=== PATIENT | male | born 1980 | race Hispanic/Latino ===

== ENCOUNTER 2017-07-10 20:23 | Observation (INO) | payer SELFPAY ==
--- NOTE | 2017-07-10 20:37 | C.PDOC ---
History Of Present Illness Patient is a 36 y/o male who presents to the ED with a complaint of left flank pain. Patient reports to have been in [facility] 2 days ago and was seen in a [facility] ED for similar symptoms; patient was admitted and had a stent placed for a 10mm kidney stone. Patient returned to [place] and experienced nausea, vomiting, and intensifying left flank pain tonight, prompting visit. Patient admits to hematuria; denies fever, chills, or testicular pain. No other physical complaints at this time. Time Seen by Provider: 07/10/17 20:28 Chief Complaint (Nursing): Male Genitourinary History Per: Patient History/Exam Limitations: no limitations Onset/Duration Of Symptoms: Days (2 days), Worse Since Current Symptoms Are (Timing): Still Present Associated Symptoms: Nausea, Vomiting, Urinary Symptoms (hematuria). denies: Fever, Chills Recent travel outside of the [place]: No Past Medical History Reviewed: Historical Data, Nursing Documentation, Vital Signs Vital Signs: Last Vital Signs Temp 98.4 F 07/10/17 20:33 Pulse 91 H 07/10/17 20:33 Resp 20 07/10/17 20:33 BP 139/89 07/10/17 20:33 Pulse Ox 97 07/10/17 20:33 - Medical History PMH: No Chronic Diseases Surgical History: No Surg Hx Family History: States: No Known Family Hx - Social History Hx Tobacco Use: Yes (light smoker) Hx Alcohol Use: No Hx Substance Use: No Review Of Systems Constitutional: Negative for: Fever, Chills Gastrointestinal: Positive for: Abdominal Pain (left flank pain) Genitourinary: Positive for: Hematuria. Negative for: Scrotal Pain, Penile Pain Physical Exam - Physical Exam Appears: Well, Non-toxic, No Acute Distress Skin: Normal Color, Warm, Dry Head: Atraumatic, Normacephalic Oral Mucosa: Moist Chest: Symmetrical Cardiovascular: Rhythm Regular, No Murmur Respiratory: Normal Breath Sounds, No Rales, No Rhonchi, No Wheezing Gastrointestinal/Abdominal: Soft, No Tenderness Back: CVA Tenderness (left CVA tenderness) ED Course And Treatment - Laboratory Results Result Diagrams: 07/10/17 20:53 07/10/17 20:53 - CT Scan/US CT Abdomen/pelvis Other Rad Studies (CT/US): Interpreted By Me, Read By Radiologist CT/US Interpretation: EXAM: CT Abdomen and Pelvis Without Intravenous Contrast. EXAM DATE/TIME: Exam ordered 07/10/2017 8:38 PM. CLINICAL HISTORY: 36 years old, male; Pain; Abdominal pain; Generalized; Prior surgery; Surgery date: Post-operative. (0-2 days); Surgery type: Stent; Additional info: Abd pain. TECHNIQUE: Axial computed tomography images of the abdomen and pelvis without intravenous contrast. All CT. scans at this facility use one or more dose reduction techniques, viz.: automated exposure control;. ma/kV adjustment per patient size (including targeted exams where dose is matched to indication; i.e. head); or iterative reconstruction technique. COMPARISON: No relevant prior studies available. FINDINGS: Lung bases: Unremarkable. No mass. No consolidation. ABDOMEN: Liver: Unremarkable. Gallbladder and bile ducts: Unremarkable. No calcified stones. No ductal dilation. Pancreas: Unremarkable. No ductal dilation. Spleen: Unremarkable. No splenomegaly. Adrenals: Unremarkable. No mass. Kidneys and ureters: Left ureteral stent. See below. No obstructing stones. No hydronephrosis. Stomach and bowel: There is a moderate to large amount of stool seen throughout the colon. Appendix: No findings to suggest acute appendicitis. Reproductive: The prostate measures 3.1 x 4.3 by 3.7 cm. Left testicle is positioned within the left. inguinal canal. ABDOMEN and PELVIS: Intraperitoneal space: Unremarkable. No free air. No significant fluid collection. Bones/joints: No acute fracture. No dislocation. Soft tissues: See above. Vasculature: Unremarkable. No abdominal aortic aneurysm. Lymph nodes: Unremarkable. No enlarged lymph nodes. Tubes, lines and devices: There is a left-sided double-J ureteral stent. The proximal end of the stent. is positioned in the ureteropelvic junction. The distal end of the stent is within the bladder beyond the. ureterovesicular junction. IMPRESSION: 1. Left -sided double-J ureteral stent. No hydronephrosis. 2. Moderate to large amount stool in the colon. 3. Left testicle is positioned within the low the left inguinal canal.. Progress Note: CT abdomen/pelvis and urine culture ordered. Pepcid, toradol, zofran, morphine, and IV fluids administered. Medical Decision Making Medical Decision Makin:30- Spoke with Hospitalist who will admit the patient under his service for UTI, abdominal pain. Patient will be admitted to [facility] Disposition Discussed With : Shaheen Hinton Counseled Patient/Family Regarding: Studies Performed, Diagnosis - Disposition Disposition: HOSPITALIZED Disposition Time: 22:28 Condition: FAIR Forms: [facility] (Divehi) - Clinical Impression Clinical Impression: UTI (urinary tract infection), Abdominal pain, Renal colic - Scribe Statement The provider has reviewed the documentation as recorded by the Scribe Danisha Clarke All medical record entries made by the Kyeibe were at my direction and personally dictated by me. I have reviewed the chart and agree that the record accurately reflects my personal performance of the history, physical exam, medical decision making, and the department course for this patient. I have also personally directed, reviewed, and agree with the discharge instructions and disposition.
[2017-07-10] MEDS ORDERED: Sodium Chloride 0.9% 1,000 ML IV ONE (20:38)
[2017-07-10 20:57] LABS: BASO # 0.1 K/uL (0.0-0.2); BASO % 1.4 % (0.0-2.0); EOS # 0.2 K/uL (0.0-0.7); EOS % 4.1 % (0.0-4.0); HEMOGLOBIN 14.5 g/dL (12.0-18.0); LYMPH # 1.1 K/uL (1.0-4.3); LYMPH % 24.4 % (20.0-40.0); MEAN CORPUSCULAR HEMOGLOBIN 29.3 pg (27.0-31.0); MEAN CORPUSCULAR HGB CONC 34.5 g/dL (33.0-37.0); MEAN PLATELET VOLUME 7.6 fL (7.2-11.7); MONO # 0.7 K/uL (0.0-0.8); MONO % 14.7 % (0.0-10.0); NEUT # 2.6 K/uL (1.8-7.0); NEUT % 55.4 % (50.0-75.0); NRBC % 0.1 % (0.0-2.0); RBC 4.96 Mil/uL (4.40-5.90); RED CELL DISTRIBUTION WIDTH 16.9 % (11.5-14.5); WHITE BLOOD COUNT 4.7 K/uL (4.8-10.8)
[2017-07-10 21:04] LABS: SQUAMOUS EPITHIAL 2 /hpf (0-5); URINE BILIRUBIN NEGATIVE (NEGATIVE); URINE BLOOD 3+ (NEGATIVE); URINE CALCIUM OXALATE CRYSTALS OCC /hpf (<OCC); URINE COLOR Red (YELLOW); URINE GLUCOSE (UA) NORMAL (Normal); URINE LEUKOCYTE ESTERASE 2+ Leu/uL (Negative); URINE PROTEIN 2+ mg/dL (NEGATIVE); URINE UROBILINOGEN NORMAL mg/dL (0.2-1.0)
[2017-07-10 21:06] VITALS: RESP 20
[2017-07-10 21:06] LABS: URINE CLARITY Turbid (Clear)
[2017-07-10 21:08] LABS: ALB/GLOB RATIO 1.2 (1.0-2.1); ALBUMIN 4.7 g/dL (3.5-5.0); ALT/SGPT 16 U/L (21-72); AST/SGOT 24 U/L (17-59); BLOOD UREA NITROGEN 12 mg/dL (9-20); CALCIUM 8.5 mg/dl (8.6-10.4); GFR AFRICAN-AMERICAN > 60; GFR NON-AFRICAN AMERICAN > 60; LIPASE 59 U/L (23-300)
[2017-07-10] MEDS ORDERED: Morphine 4 MG/ML VIAL IV STA ×2 (21:16→22:13)
[2017-07-10] MEDS ORDERED: Morphine 4 MG/ML VIAL ONE ×2 (21:21→22:20)
[2017-07-10] MEDS ORDERED: cefTRIAXone IV 1 gm in Dextros 50 ML IVPB ONE (22:34)
--- NOTE | 2017-07-10 23:02 | CP.PCM.HP ---
<GentryBenigno Elva - Last Filed: 07/10/17 23:25> History of Present Illness - History of Present Illness History of Present Illness: CC: "I had a kidney stone" HPI: Mr Stanford is a 36 year old male with a past medical history of kidney stones (uric acid stones), HTN, HLD who presents to [facility] ER complaining of left sided inguinal pain. He states that he was on vacation in [place] when this past , 2 days ago, he developed sudden left inguinal pain. He went to the ER and had a lithotripsy of a 10mm stone and J stent placement in the left ureter. He was discharged with Bactrim and percocet. He came back to [place] 1 day ago without issues. Today afternoon he developed sudden 10/10 left inguinal pain, he took percocet and tylenol without relief and thus decided to come to [facility] ER. Associated symptoms include nausea, vomiting, dysuria and hematuria. He denies chest pain, fever, chills, diarrhea, shortness of breath. When I evaluated him in the ER he was in 10/10 pain even though he had received 8mg Morphine IV. 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 absent: Chills, Fever, Night Sweats - EENT Eyes: absent: Change in Vision - Cardiovascular Cardiovascular: absent: Chest Pain - Respiratory Respiratory: absent: Cough, Hemoptysis - Gastrointestinal Gastrointestinal: absent: Abdominal Pain, Diarrhea - Genitourinary Genitourinary: Difficulty Urinating, Dysuria, Flank Pain, Hematuria, Hx / Renal Surgery, Bladder Distension - Musculoskeletal Musculoskeletal: absent: Arthralgias, Back Pain - Integumentary Integumentary: absent: Bleeding Lesions - Neurological Neurological: absent: Confusion Past Patient History - Past Social History Smoking Status: Light Smoker < 10 Cigarettes Daily - CARDIAC Hx Hypercholesterolemia: Yes - RENAL Hx Kidney Stones: Yes - PSYCHIATRIC Hx Substance Use: No - SURGICAL HISTORY Other/Comment: urethral stent Meds Allergies/Adverse Reactions: Allergies Allergy/AdvReac Type Severity Reaction Status Date / Time NSAIDS (Non-Steroidal Allergy Verified 07/10/17 21:00 Anti-Inflamma Physical Exam - Constitutional Appears: Non-toxic, In Acute Distress - Head Exam Head Exam: ATRAUMATIC, NORMAL INSPECTION - Eye Exam Eye Exam: EOMI Pupil Exam: PERRL - ENT Exam ENT Exam: Mucous Membranes Moist - Neck Exam Neck exam: Positive for: Normal Inspection. Negative for: Lymphadenopathy, Tenderness - Respiratory Exam Respiratory Exam: Clear to Auscultation Bilateral, NORMAL BREATHING PATTERN. absent: Rales, Rhonchi, Wheezes - Cardiovascular Exam Cardiovascular Exam: Tachycardia, REGULAR RHYTHM, +S1, +S2. absent: JVD, Systolic Murmur - GI/Abdominal Exam GI & Abdominal Exam: Normal Bowel Sounds, Soft, Tenderness. absent: Distended, Firm, Guarding, Hernia, Mass - Exam Additional comments: Left inguinal tenderness; Left CVA tenderness - Extremities Exam Extremities exam: Positive for: normal capillary refill, normal inspection, pedal pulses present. Negative for: pedal edema - Back Exam Back exam: CVA tenderness (L) - Neurological Exam Neurological exam: Alert, Oriented x3 - Psychiatric Exam Psychiatric exam: Normal Affect, Normal Mood - Skin Skin Exam: Intact, Normal Color, Warm Results - Vital Signs Recent Vital Signs: Last Vital Signs Temp 98.4 F 07/10/17 20:33 Pulse 91 H 07/10/17 20:33 Resp 20 07/10/17 20:33 BP 139/89 07/10/17 20:33 Pulse Ox 97 07/10/17 20:33 - Labs Result Diagrams: 07/10/17 20:53 07/10/17 20:53 Labs: Laboratory Results - last 24 hr 07/10/17 07/10/17 07/10/17 20:53 20:53 20:53 WBC 4.7 L RBC 4.96 Hgb 14.5 Hct 42.2 MCV 85.0 MCH 29.3 MCHC 34.5 RDW 16.9 H Plt Count 297 MPV 7.6 Neut % (Auto) 55.4 Lymph % (Auto) 24.4 [place] % (Auto) 14.7 H Eos % (Auto) 4.1 H Baso % (Auto) 1.4 Neut # (Auto) 2.6 Lymph # (Auto) 1.1 [place] # (Auto) 0.7 Eos # (Auto) 0.2 Baso # (Auto) 0.1 Sodium 140 Potassium 3.6 Chloride 100 Carbon Dioxide 24 Anion Gap 20 BUN 12 Creatinine 0.9 Est GFR ( Amer) > 60 Est GFR (Non-Af Amer) > 60 Random Glucose 100 Calcium 8.5 L Total Bilirubin 0.8 AST 24 ALT 16 L Alkaline Phosphatase 82 Total Protein 8.7 H Albumin 4.7 Globulin 4.0 H Albumin/Globulin Ratio 1.2 Lipase 59 Urine Color Red Urine Clarity Turbid Urine pH 6.0 Ur Specific [place] 1.019 Urine Protein 2+ H Urine Glucose (UA) Normal Urine Ketones Negative Urine Blood 3+ H Urine Nitrate Negative Urine Bilirubin Negative Urine Urobilinogen Normal Ur Leukocyte Esterase 2+ H Urine WBC (Auto) 71 H Urine RBC (Auto) 1922 H Ur Squamous Epith Cells 2 Calcium Oxalate Crystal Occ H Urine Yeast (Budding) Occ H Assessment & Plan (1) Renal colic Assessment and Plan: Lithotripsy of 10mm left ureter stone and J-stent placement in left ureter 2 days ago Hx of recurrent uric acid kidney stones Urology consult, Dr Luna. Will follow recommendations. NPO for now (for possible urology procedure) * Will order EKG and CXR for possible pre-op Labs/Diagnostics: No leukocytosis, afebrile Lipase NEGATIVE F/U UDS Imaging: Abd/Pelvis CT w/o contrast 07/10/17: pending official report Meds: Dilaudid 1mg IVP Q4H PRN for severe pain Cont home med Flomax 0.4mg PO QD Temazepam 30mg PO HS PRN for insomnia 2/2 to pain Zofran 4mg IVP Q6H PRN for n/v Status: Acute Priority: High (2) UTI (urinary tract infection) Assessment and Plan: Labs/Diagnostics: UA: 2+ Protein, 3+ blood, 2+ leukocyte esterase, 71 WBC, 1922 RBC, calcium oxalate, urine yeast F/U Urine Cx Meds: Ceftriaxone 1g IVPB QD NS @ 125cc/hr Status: Acute Priority: High (3) HTN (hypertension) Assessment and Plan: Cont home med lisinopril 5mg PO QD Status: Acute (4) HLD (hyperlipidemia) Assessment and Plan: Cont home med atorvastatin 40mg QD (substitute in house med crestor 10mg PO QD) Status: Acute (5) Prophylactic measure Assessment and Plan: SCDs AO contraindicated 2/2 hematuria NPO for now (for possible urology procedure) Status: Acute Priority: Low <Shaheen Hinton - Last Filed: 07/11/17 06:23> Results - Vital Signs Recent Vital Signs: Last Vital Signs Temp 97.5 F L 07/10/17 23:55 Pulse 80 07/10/17 23:55 Resp 20 07/10/17 23:55 BP 117/79 07/10/17 23:55 Pulse Ox 97 07/10/17 23:55 - Labs Result Diagrams: 07/10/17 20:53 07/10/17 20:53 Labs: Laboratory Results - last 24 hr 07/10/17 07/10/17 07/10/17 20:53 20:53 20:53 WBC 4.7 L RBC 4.96 Hgb 14.5 Hct 42.2 MCV 85.0 MCH 29.3 MCHC 34.5 RDW 16.9 H Plt Count 297 MPV 7.6 Neut % (Auto) 55.4 Lymph % (Auto) 24.4 [place] % (Auto) 14.7 H Eos % (Auto) 4.1 H Baso % (Auto) 1.4 Neut # (Auto) 2.6 Lymph # (Auto) 1.1 [place] # (Auto) 0.7 Eos # (Auto) 0.2 Baso # (Auto) 0.1 Sodium 140 Potassium 3.6 Chloride 100 Carbon Dioxide 24 Anion Gap 20 BUN 12 Creatinine 0.9 Est GFR ( Amer) > 60 Est GFR (Non-Af Amer) > 60 Random Glucose 100 Calcium 8.5 L Total Bilirubin 0.8 AST 24 ALT 16 L Alkaline Phosphatase 82 Total Protein 8.7 H Albumin 4.7 Globulin 4.0 H Albumin/Globulin Ratio 1.2 Lipase 59 Urine Color Red Urine Clarity Turbid Urine pH 6.0 Ur Specific [place] 1.019 Urine Protein 2+ H Urine Glucose (UA) Normal Urine Ketones Negative Urine Blood 3+ H Urine Nitrate Negative Urine Bilirubin Negative Urine Urobilinogen Normal Ur Leukocyte Esterase 2+ H Urine WBC (Auto) 71 H Urine RBC (Auto) 1922 H Ur Squamous Epith Cells 2 Calcium Oxalate Crystal Occ H Urine Yeast (Budding) Occ H Urine Opiates Screen Urine Methadone Screen Ur Barbiturates Screen Ur Phencyclidine Scrn Ur Amphetamines Screen U Benzodiazepines Scrn U Oth Cocaine Metabols U Cannabinoids Screen 07/10/17 23:59 WBC RBC Hgb Hct MCV MCH MCHC RDW Plt Count MPV Neut % (Auto) Lymph % (Auto) [place] % (Auto) Eos % (Auto) Baso % (Auto) Neut # (Auto) Lymph # (Auto) [place] # (Auto) Eos # (Auto) Baso # (Auto) Sodium Potassium Chloride Carbon Dioxide Anion Gap BUN Creatinine Est GFR ( Amer) Est GFR (Non-Af Amer) Random Glucose Calcium Total Bilirubin AST ALT Alkaline Phosphatase Total Protein Albumin Globulin Albumin/Globulin Ratio Lipase Urine Color Urine Clarity Urine pH Ur Specific [place] Urine Protein Urine Glucose (UA) Urine Ketones Urine Blood Urine Nitrate Urine Bilirubin Urine Urobilinogen Ur Leukocyte Esterase Urine WBC (Auto) Urine RBC (Auto) Ur Squamous Epith Cells Calcium Oxalate Crystal Urine Yeast (Budding) Urine Opiates Screen Positive H Urine Methadone Screen Negative Ur Barbiturates Screen Negative Ur Phencyclidine Scrn Negative Ur Amphetamines Screen Negative U Benzodiazepines Scrn Negative U Oth Cocaine Metabols Negative U Cannabinoids Screen Negative Assessment & Plan - Date & Time Date: 07/11/17 (I have seen and examined the patient. I agree with the findings and plan of care as documented by Dr. Rinaldi. Patient with nephrolithiasis and UTI. Stent recently placed. Rocephin. Consult to urology. Symptomatic treatment. Monitor for acute changes.) Time: 06:22 Attending/Attestation - Attestation I have personally seen and examined this patient.: Yes I have fully participated in the care of the patient.: Yes I have reviewed all pertinent clinical information: Yes
[2017-07-10] MEDS ORDERED: HYDROmorphone 1 mg/ml ISec IVP PRN (23:13)
[2017-07-10] MEDS: Sodium Chloride 0.9% 1,000 ML IV SCH (23:25)
[2017-07-11 00:33] LABS: BARBITURATES, UR NEGATIVE (NEGATIVE); BENZODIAZEPINES, UR NEGATIVE (NEGATIVE); PHENCYCLIDINE, UR NEGATIVE (NEGATIVE)
[2017-07-11 01:12] LABS: OPIATES, UR POSITIVE (NEGATIVE)
[2017-07-11] MEDS: Sodium Chloride 0.9% 1,000 ML IV SCH ×4 (08:02→22:54)
--- NOTE | 2017-07-11 09:14 | CP.PCM.PN ---
<Harsh Abebe - Last Filed: 07/11/17 15:09> Subjective - Date & Time of Evaluation Date of Evaluation: 07/11/17 Time of Evaluation: 10:30 - Subjective Subjective: PGY 2 Medicine Note- Dr. Elizabeth's service Patient seen and examined in no acute distress. Patient admits to left sided diffuse flank pain. He admits to vomiting yesterday and occasional nausea currently. Patient reportedly refused blood work, vitals and imaging studies earlier this morning per nursing team. Patient stated that no one specifically told him the medical plan going ahead. At this time, patient is refusing further lab work or imaging until he is seen by the Urologist. He denies chest pain, palpitations or headaches at this time. Patient used to follow with a Urologist back in [place], who has since retired. Patient is looking for another Urologist who he can establish care with pending discharge. Objective - Vital Signs/Intake and Output Vital Signs (last 24 hours): Temp Pulse Resp BP Pulse Ox 97.5 F L 80 20 117/79 97 07/10/17 23:55 07/10/17 23:55 07/10/17 23:55 07/10/17 23:55 07/10/17 23:55 Intake and Output: 07/11/17 07/11/17 06:59 18:59 Intake Total 875 Balance 875 - Medications Medications: Current Medications Hydromorphone HCl (Dilaudid) 1 mg IVP Q4H PRN PRN Reason: Pain, severe (8-10) Last Admin: 07/11/17 07:42 Dose: 1 mg Sodium Chloride (Sodium Chloride 0.9%) 1,000 mls @ 125 mls/hr IV .Q8H [facility] Last Admin: 07/11/17 08:02 Dose: Not Given Ceftriaxone Sodium 1 gm/ (Sodium Chloride) 100 mls @ 100 mls/hr IVPB Q12H [facility] PRN Reason: Protocol Lisinopril (Zestril) 5 mg PO DAILY [facility] Ondansetron HCl (Zofran Inj) 4 mg IVP Q6 PRN PRN Reason: Nausea/Vomiting Rosuvastatin Calcium (Crestor) 10 mg PO HS [facility] Tamsulosin HCl (Flomax) 0.4 mg PO DAILY [facility] Temazepam (Restoril) 30 mg PO HS PRN PRN Reason: Insomnia - Labs Labs: 07/10/17 20:53 07/10/17 20:53 - Constitutional Appears: Non-toxic, No Acute Distress - Head Exam Head Exam: ATRAUMATIC, NORMAL INSPECTION - Eye Exam Eye Exam: EOMI, Normal appearance, PERRL Pupil Exam: NORMAL ACCOMODATION, PERRL - ENT Exam ENT Exam: Mucous Membranes Moist - Neck Exam Neck Exam: Full ROM - Respiratory Exam Respiratory Exam: NORMAL BREATHING PATTERN. absent: Wheezes - Cardiovascular Exam Cardiovascular Exam: +S1, +S2 - GI/Abdominal Exam GI & Abdominal Exam: Soft, Normal Bowel Sounds. absent: Guarding - Extremities Exam Extremities Exam: Full ROM - Back Exam Back Exam: CVA tenderness (L). absent: CVA tenderness (R) - Neurological Exam Neurological Exam: Awake, Normal Gait, Oriented x3 - Psychiatric Exam Psychiatric exam: Normal Affect, Normal Mood - Skin Skin Exam: Dry, Normal Color, Warm Assessment and Plan - Assessment and Plan (Free Text) Assessment: Assessment & Plan (1) S/P Lithotripsy for Nephrolithiasis Assessment and Plan: Lithotripsy of 10mm left ureter stone and J-stent placement in left ureter 2 days ago Hx of recurrent uric acid kidney stones Urology consult, Dr Luna. Recommendations for outpatient follow up within the week. Abdominal XRAY to check stent placment- however patient refused at this time Advance diet to clears. Monitor No leukocytosis, afebrile Lipase NEGATIVE UDS- Positive for opiates; however patient has been receiving opiate pain medication in the hospital. Abd/Pelvis CT w/o contrast 07/10/17- Left ureteral stent noted. Questionable imaging findings with regards to testicle. Refer to complete imaging report. (A clinical exam was performed by Urologist Dr. Luna and found exam to be within normal parameters) Dilaudid 1mg IVP Q4H PRN for severe pain switched to Morphine 4 mg Q4 PRN for pain control Flomax 0.4mg PO daily Temazepam 30mg PO HS PRN for insomnia Zofran 4mg IVP Q6H PRN for nausea and vomiting Status: Acute Priority: High (2) Complicated UTI (urinary tract infection) Assessment and Plan: Noted recent stent instrumentation which puts patient at increased risk for UTI. Was recently on Bactrim antibiotic therapy previously to this admission. UA: 2+ Protein, 3+ blood, 2+ leukocyte esterase, 71 WBC, 1922 RBC, calcium oxalate, urine yeast F/U Urine Culture Ceftriaxone 1g IVPB discontinued. Will switch to Maxipime 1 g Q12 at this time ( Started 07/11). Vanco 1g Q12 for MRSA coverage (Started 07/11) . On Florastor ( Started 07/11) Monitor LFTs NS @ 125cc/hr Status: Acute Priority: High (3) HTN (hypertension) Assessment and Plan: Cont home med lisinopril 5mg PO daily Normotensive Status: Acute (4) HLD (hyperlipidemia) Assessment and Plan: Cont home med atorvastatin 40mg daily (substitute in house med crestor 10mg PO daily) Status: Acute (5) Prophylactic measure Assessment and Plan: SCDs Anticoagulation contraindicated secondary to hematuria Status: Acute Priority: Low Disp: Likely discharge 07/12 pending AM labs, cultures and clinical presentation. Patient would like to establish care with Dr. Sanders outpatient. Mis, PGY 2 <Nichole Elizabeth V - Last Filed: 07/11/17 17:03> Objective - Vital Signs/Intake and Output Vital Signs (last 24 hours): Temp Pulse Resp BP Pulse Ox 97.8 F 63 20 137/84 97 07/11/17 15:15 07/11/17 15:15 07/11/17 15:15 07/11/17 15:15 07/11/17 15:15 Intake and Output: 07/11/17 07/11/17 06:59 18:59 Intake Total 875 1100 Balance 875 1100 - Medications Medications: Current Medications Sodium Chloride (Sodium Chloride 0.9%) 1,000 mls @ 125 mls/hr IV .Q8H [facility] Last Admin: 07/11/17 14:17 Dose: Not Given Cefepime HCl 1 gm/ Dextrose 50 mls @ 100 mls/hr IVPB Q12H [facility] PRN Reason: Protocol Last Admin: 07/11/17 16:11 Dose: 100 mls/hr Vancomycin/Sodium Chloride (Vancomycin 1 Gm/Ns 200 Ml) 1 gm in 200 mls @ 133.333 mls/hr IVPB Q12H [facility] PRN Reason: Protocol Stop: 07/16/17 15:31 Last Admin: 07/11/17 16:10 Dose: 133.333 mls/hr Lisinopril (Zestril) 5 mg PO DAILY [facility] Last Admin: 07/11/17 10:57 Dose: 5 mg Morphine Sulfate (Morphine) 4 mg IVP Q4 PRN PRN Reason: Pain, moderate (4-7) Last Admin: 07/11/17 16:09 Dose: 4 mg Ondansetron HCl (Zofran Inj) 4 mg IVP Q6 PRN PRN Reason: Nausea/Vomiting Rosuvastatin Calcium (Crestor) 10 mg PO HS [facility] Saccharomyces Boulardii (Florastor) 250 mg PO BID [facility] Tamsulosin HCl (Flomax) 0.4 mg PO DAILY [facility] Last Admin: 07/11/17 10:57 Dose: 0.4 mg Temazepam (Restoril) 30 mg PO HS PRN PRN Reason: Insomnia - Labs Labs: 07/11/17 10:40 07/11/17 10:40 PT 12.9 SECONDS (9.7-12.2) H 07/11/17 10:40 INR 1.1 07/11/17 10:40 APTT 31 SECONDS (21-34) 07/11/17 10:40 Attending/Attestation - Attestation I have personally seen and examined this patient.: Yes I have fully participated in the care of the patient.: Yes I have reviewed all pertinent clinical information, including history, physical exam and plan: Yes Notes (Text): Patient seen, examined and case discussed with day-time resident. Patient with known history of recurrent nephrolithasis status post urethral stent 2 days ago while in [facility], with renal colic. Patient initially this morning very upset, nasty per his AM nurse. Resident went in patient upset because he didn't understand why an EKG or chest xray was necessary and resident to spoke with him in regards to not delay an urologic intervention if needs. Patient reported he understood explanation but he would like to wait until the urologist sees him. Dr. Bear came and evaluated at bedside, I witnessed. Patient has reported normal prostate, undescended testicle over the left, nonpainful, and testicle over the right, nonpainful, circumsized penis. No discharge noted. Urology has explained to him he does not need any procedure, can follow-up with him as outpatient at time of discharge, will need pain control (allergic to aspirin, and NSAID: hives). I have explained to the patient he will need to wait for follow-up urine culture to make sure infection clears. Patient denies chest pain, denies shortness of breathe, denies abdominal pain, reports constipation, which is normal for him, reports back pain. (1) Nephrolithiasis Renal colic Recent J-stent placement Assessment and Plan: * sy of 10mm left ureter stone and J-stent placement in left ureter 2 days ago * 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 Recommendations for outpatient follow up within the week, to remove stent, and followup for 24 hour stone collection given his history of recurrent stones. Abdominal XRAY to check stent placment- however patient refused at this time * Advance diet to clears. Monitor * No leukocytosis, afebrile * Lipase NEGATIVE * UDS- Positive for opiates; however patient has been receiving opiate pain medication in the hospital. * Abd/Pelvis CT w/o contrast 07/10/17- Left ureteral stent noted. Questionable imaging findings with regards to testicle. Refer to complete imaging report. * Dilaudid 1mg IVP Q4H PRN for severe pain switched to Morphine 4 mg Q4 PRN for pain control since dilaudid is not in stock at the hospital * Flomax 0.4mg PO daily * Temazepam 30mg PO HS PRN for insomnia * Zofran 4mg IVP Q6H PRN for nausea and vomiting Status: Acute Priority: High (2) Complicated UTI (urinary tract infection) Assessment and Plan: * Noted recent stent instrumentation which puts patient at increased risk for UTI. * Was recently on Bactrim antibiotic therapy previously to this admission. * UA: 2+ Protein, 3+ blood, 2+ leukocyte esterase, 71 WBC, 1922 RBC, calcium oxalate, urine yeast; F/U Urine Culture * Ceftriaxone 1g IVPB discontinued. Will switch to Maxipime 1 g Q12 at this time (Started 07/11/17). Vanco 1g IV Q12 for MRSA coverage (Started 07/11) . On Florastor 250mg PO BID (Started 07/11) * Monitor LFTs * NS @ 125cc/hr Status: Acute Priority: High (3) HTN (hypertension) Assessment and Plan: * Cont home med lisinopril 5mg PO daily * Normotensive Status: Acute (4) HLD (hyperlipidemia) Assessment and Plan: * Cont home med atorvastatin 40mg daily (substitute in house med crestor 10mg PO daily) Status: Acute (5) Prophylactic measure Assessment and Plan: * SCDs * Anticoagulation contraindicated secondary to hematuria * No NSAIDS no Aspirin given allergy: hives * Patient had refused EKG, chest xray and flat abdominal xray. Status: Acute Priority: Low Disp: Likely discharge 07/12 pending AM labs, cultures and clinical presentation. Discharge last line of resident note in regards to separate patient for follow- up. patient undecided if he is going to follow-up here or in [place].
[2017-07-11] MEDS ORDERED: cefTRIAXone IV 1 gm in Dextros 1 GM in Dextrose 5% In Water 50 ML IVPB SCH (10:00)
[2017-07-11 11:24] LABS: BASO % 1.4 % (0.0-2.0); EOS # 0.2 K/uL (0.0-0.7); EOS % 4.6 % (0.0-4.0); HEMOGLOBIN 13.3 g/dL (12.0-18.0); LYMPH # 0.8 K/uL (1.0-4.3); LYMPH % 24.4 % (20.0-40.0); MEAN CELL VOLUME 85.9 fL (80.0-94.0); MEAN CORPUSCULAR HGB CONC 33.8 g/dL (33.0-37.0); MEAN PLATELET VOLUME 7.8 fL (7.2-11.7); MONO # 0.6 K/uL (0.0-0.8); NEUT # 1.7 K/uL (1.8-7.0); NEUT % 51.6 % (50.0-75.0); NRBC % 0.2 % (0.0-2.0); RBC 4.59 Mil/uL (4.40-5.90); RED CELL DISTRIBUTION WIDTH 16.8 % (11.5-14.5); WHITE BLOOD COUNT 3.4 K/uL (4.8-10.8)
[2017-07-11 11:31] LABS: INR 1.1; PROTHROMBIN TIME 12.9 SECONDS (9.7-12.2)
[2017-07-11 12:13] LABS: ALB/GLOB RATIO 1.1 (1.0-2.1); ALBUMIN 3.9 g/dL (3.5-5.0); ALT/SGPT 24 U/L (21-72); AST/SGOT 41 U/L (17-59); BLOOD UREA NITROGEN 9 mg/dL (9-20); CALCIUM 8.6 mg/dl (8.6-10.4); GFR AFRICAN-AMERICAN > 60; GFR NON-AFRICAN AMERICAN > 60
--- NOTE | 2017-07-11 13:26 | CT ---
PROCEDURE: CT scan abdomen and pelvis dated 07/10/2017 HISTORY: Abdominal pain COMPARISON: No prior TECHNIQUE: Contiguous axial images of the abdomen and pelvis performed without oral or intravenous contrast material. Additional 2 dimensional sagittal and coronal reformats generated. Radiation dose: Total exam DLP = This CT exam was performed using one or more of the following dose reduction techniques: Automated exposure control, adjustment of the mA and/or kV according to patient size, and/or use of iterative reconstruction technique. FINDINGS: LOWER THORAX: Unremarkable. LIVER: Unremarkable. No gross lesion or ductal dilatation. GALLBLADDER AND BILE DUCTS: Unremarkable. PANCREAS: Pancreas appears slightly atrophic and fatty replaced. No obvious pancreatic masses collections or calcifications. SPLEEN: Unremarkable. No splenomegaly. ADRENALS: Unremarkable. KIDNEYS AND URETERS: In situ left ureteral stent. . Kidneys demonstrate relatively symmetric size. No evidence of nephrolithiasis. BLADDER: Urinary bladder incompletely distended which presumably in part accounts for thick-walled appearance. Muscular hypertrophy may contribute. Rule out cystitis. REPRODUCTIVE: Questionable undescended left-sided testis as indicated below within the peritoneal section of this report APPENDIX: Normal-appearing appendix best seen on coronal image number [id number]. No evidence of acute appendicitis BOWEL: Evaluation of the bowel is limited due to the lack of oral contrast material. The stomach is distended with food debris liquid and air. Visualized loops of small bowel exhibit normal contour and caliber. No evidence acute mechanical small bowel obstruction. Moderately large amount of stool seen throughout the colon suggesting fecal retention/ constipation. PERITONEUM: Unremarkable. No fluid collection. No free air. There is a small fat containing umbilical hernia. LYMPH NODES: Unremarkable. No enlarged lymph nodes. VASCULATURE: Unremarkable. No aortic aneurysm. BONES: Mild multilevel degenerative spondylosis of the lower thoracic and lumbar spine. Minor chronic anterior wedge deformities of T11, T12 and to a lesser degree L1 segments felt to be degenerative in origin OTHER FINDINGS: None. IMPRESSION: In situ left ureteral stent. Questionable small amount of fluid or left-sided testicle within the inferior margin of the left inguinal canal -undescended left-sided testis. Correlation with physical exam and/or scrotal ultrasound could be performed for further evaluation. Findings consistent with constipation. Preliminary report provided by overnight radiology service.
[2017-07-11] MEDS ORDERED: Morphine 4 MG/ML VIAL IVP PRN (15:00)
[2017-07-11] MEDS: Vancomycin 1 gm/NS 200 ml 1 GM/200 ML BAG IVPB SCH (16:10)
[2017-07-11] MEDS: Saccharomyces Boulardi 250 mg Cap PO SCH (17:22)
[2017-07-11] MEDS ORDERED: Morphine 4 MG/ML VIAL IVP STA (17:54)
[2017-07-11] MEDS: Morphine 4 MG/ML VIAL IVP PRN (21:10)
[2017-07-12] MEDS: Morphine 4 MG/ML VIAL IVP PRN ×5 (01:06→16:09)
--- NOTE | 2017-07-12 01:16 | CON ---
DATE: 07/11/2017 TIME OF CONSULTATION: Roughly 01:50 p.m. BRIEF HISTORY: The patient is a 36-year-old sexually active white male with one child and a more than 14-year history of kidney stones. The patient's first episode of kidney stones was in 2003 and his last episode of kidney stones prior to this most recent episode was 2011. The patient has always passed his kidney stones. However, during this episode which occurred on 07/08/2017, in [place], the patient was rushed to the emergency room where a CAT scan showed a 10-mm obstructing UPJ stone with severe hydronephrosis. The patient underwent emergency left ureteroscopic laser lithotripsy with complete destruction and removal of the stone fragments and was left with an indwelling left ureteral stent. The patient comes to [facility] emergency room on 07/10/2017 with acute left renal colic and abdominal pelvic CT stone survey showed no evidence of any ureteral stone and just the indwelling left ureteral stent with no hydronephrosis at this time. The patient also had a possibility of a partially left undescended testicle on CT. The patient denies any fever or chills, but did have some nausea and vomiting episodes. The patient was discharged home from [place] on Bactrim DS one b.i.d. FAMILY HISTORY: The patient has a very strong family history of kidney stones, mostly on the male side. His father and grandfather both had kidney stones. PAST SURGICAL HISTORY: Includes tendon repair of the right arm and the left ureteroscopic laser lithotripsy for a 10 mm stone on , 07/08/2017 in [place], ALLERGIES: HE IS STRONGLY ALLERGIC TO NSAIDs AND ASPIRIN, WHICH HE GETS HIVES WHEN HE TAKES THIS CLASS OF MEDICATIONS. PAST MEDICAL AND SURGICAL HISTORY: He has no other medical or surgical history. The patient is currently complaining of some mild left renal colic after being started on Rocephin 1 gm IV piggyback every 24 hours, but this was switched to Maxipime today. PHYSICAL EXAMINATION GENERAL: He is a well-developed, well-nourished slightly obese white male. He is alert. He is oriented. HEENT: Grossly within normal limits. NECK: Supple. Thyroid not palpable. ABDOMEN: Soft and nondistended. BACK: No right CVA tenderness, 1 to 2+ left CVA tenderness. GENITALIA: The patient is circumcised with a normal glandular meatus without any rashes or lesions visualized. Testes are down bilaterally. The left testicle was more high riding, but retracts into the scrotal sac with and it appears to be normal and larger than the right testis. RECTAL: Normal rectal tone without fluctuance or masses. Prostate is average size, smooth, symmetrical, nontender without nodules or indurations with a palpable median sulcus. EXTREMITIES: He has full range of motion of both upper and lower extremities. No leg edema or calf tenderness present. LABORATORY EVALUATION: Today, on 07/11/2017, shows a drop in WBC count from 4.7, which was normal on admission to 3.4 today on IV Rocephin. His hemoglobin and hematocrit are relatively stable today, 07/11/2017. His hemoglobin is 13.3 and hematocrit is 39.4, down from 14.5 and 14.2 on admission, 07/10/2017. Platelet count is 430,000, down from 297,000 on 07/10/2017. His coag profile shows a PT of 12.9, INR of 1.1, and a PTT of 31. His chem profile today, 07/11/2017 shows a sodium of 140, potassium 4.1, chloride 102, CO2 26, BUN and creatinine of 9 and 0.8 respectively, with GFR of greater than 60. Random glucose is 90. Calcium is 8.6, AST was 41, ALT was 24, alk phosphatase was 64, and lipase was 59 on 07/10/2017. His urinalysis on 07/10/2017, the color was red. Clarity was turbid, pH was 6.0, specific gravity 1.019, protein was 2+, glucose is normal, ketones negative, blood 3+. Nitrites, bilirubin, and urobilinogen were all negative or normal. Leukocyte esterase was 2+ with 71 wbc's, 1922 rbc's, with occasional calcium oxalate crystals and some budding yeast. Toxicology was positive for opiates. Otherwise, negative. DIAGNOSTIC IMPRESSION: 1. Status post left ureteroscopic laser lithotripsy for a proximal 10 mm ureteropelvic junction stone, done in [place], [place] on 07/08/2017 with insertion postop of a left ureteral stent. 2. Possible subacute left pyelonephritis. PLAN: Plan is for this patient is to maintain the patient on IV antibiotics till the culture and sensitivities come back from the lab. The patient could eventually be discharged to home on new oral antibiotics depending on the urine culture and sensitivity. The patient also can be placed on Flomax 0.4 mg daily, until the stent is removed with passage of any residual stone sac fragments that are not able to be seen on CAT scan. We will also get a KUB to make sure that the stent was in proper position. The patient will be seen in office followup in about 1 week as per discharge to schedule the patient for cystoscopy with removal of the left ureteral stent. Elmer Luna MD
[2017-07-12] MEDS: Vancomycin 1 gm/NS 200 ml 1 GM/200 ML BAG IVPB SCH ×2 (03:05→14:40)
[2017-07-12] MEDS: Sodium Chloride 0.9% 1,000 ML IV SCH ×3 (03:06→14:40)
[2017-07-12] MEDS: Saccharomyces Boulardi 250 mg Cap PO SCH ×2 (09:23→17:53)
--- NOTE | 2017-07-12 09:26 | CP.PCM.PN ---
<Benigno Rinaldi - Last Filed: 07/12/17 14:11> Subjective - Date & Time of Evaluation Date of Evaluation: 07/12/17 Time of Evaluation: 09:23 - Subjective Subjective: PGY-[address] Tacos Sierra. Patient was given PRN pain meds last night for flank pain. Today he refused his lisinopril, florastor, fluids, and flomax. He says he only wants meds to treat his kidney stone and not other conditions. Today he stated his pain is better compared to admission - he had just received 6mg morphine prior to me seeing him. He denied chest pain, abdominal pain, nausea, vomiting, diarrhea. Objective - Vital Signs/Intake and Output Vital Signs (last 24 hours): Temp Pulse Resp BP Pulse Ox 97.8 F 63 20 137/84 97 07/11/17 15:15 07/11/17 15:15 07/11/17 15:15 07/11/17 15:15 07/11/17 15:15 Intake and Output: 07/12/17 07/12/17 06:59 18:59 Intake Total 2450 Balance 2450 - Medications Medications: Current Medications Sodium Chloride (Sodium Chloride 0.9%) 1,000 mls @ 125 mls/hr IV .Q8H [facility] Last Admin: 07/12/17 08:21 Dose: Not Given Cefepime HCl 1 gm/ Dextrose 50 mls @ 100 mls/hr IVPB Q12H KARIN PRN Reason: Protocol Last Admin: 07/12/17 04:58 Dose: 100 mls/hr Vancomycin/Sodium Chloride (Vancomycin 1 Gm/Ns 200 Ml) 1 gm in 200 mls @ 133.333 mls/hr IVPB Q12H KARIN PRN Reason: Protocol Stop: 07/16/17 15:31 Last Admin: 07/12/17 03:05 Dose: 133.333 mls/hr Lisinopril (Zestril) 5 mg PO DAILY [facility] Last Admin: 07/12/17 09:23 Dose: Not Given Morphine Sulfate (Morphine) 6 mg IVP Q4 PRN PRN Reason: Pain, moderate (4-7) Last Admin: 07/12/17 08:10 Dose: 6 mg Ondansetron HCl (Zofran Inj) 4 mg IVP Q6 PRN PRN Reason: Nausea/Vomiting Rosuvastatin Calcium (Crestor) 10 mg PO HS [facility] Last Admin: 07/11/17 21:08 Dose: 10 mg Saccharomyces Boulardii (Florastor) 250 mg PO BID [facility] Last Admin: 07/12/17 09:23 Dose: Not Given Tamsulosin HCl (Flomax) 0.4 mg PO DAILY [facility] Last Admin: 07/12/17 09:22 Dose: Not Given Temazepam (Restoril) 30 mg PO HS PRN PRN Reason: Insomnia - Labs Labs: 07/11/17 10:40 07/11/17 10:40 PT 12.9 SECONDS (9.7-12.2) H 07/11/17 10:40 INR 1.1 07/11/17 10:40 APTT 31 SECONDS (21-34) 07/11/17 10:40 - Additional Findings Additional findings: - Constitutional Appears: Non-toxic, No Acute Distress - Head Exam Head Exam: ATRAUMATIC, NORMAL INSPECTION - Eye Exam Eye Exam: EOMI, Normal appearance, PERRL Pupil Exam: NORMAL ACCOMODATION, PERRL - ENT Exam ENT Exam: Mucous Membranes Moist - Neck Exam Neck Exam: Full ROM - Respiratory Exam Respiratory Exam: NORMAL BREATHING PATTERN. absent: Wheezes - Cardiovascular Exam Cardiovascular Exam: +S1, +S2 - GI/Abdominal Exam GI & Abdominal Exam: Soft, Normal Bowel Sounds. absent: Guarding - Extremities Exam Extremities Exam: Full ROM - Back Exam Back Exam: CVA tenderness (L). absent: CVA tenderness (R) - Neurological Exam Neurological Exam: Awake, Normal Gait, Oriented x3 - Psychiatric Exam Psychiatric exam: Normal Affect, Normal Mood - Skin Skin Exam: Dry, Normal Color, Warm Assessment and Plan (1) Renal colic Status: Acute (2) UTI (urinary tract infection) Status: Acute (3) HTN (hypertension) Status: Acute (4) HLD (hyperlipidemia) Status: Acute (5) Prophylactic measure Status: Acute - Assessment and Plan (Free Text) Assessment: (1) Nephrolithiasis Renal colic Recent J-stent placement Assessment and Plan: * sy of 10mm left ureter stone and J-stent placement in left ureter 2 days ago * 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 * Recommendations for outpatient follow up within the week, to remove stent, and followup for 24 hour stone collection given his history of recurrent stones , discharge with flomax 0.4mg daily until stent is removed. Abdominal XRAY to check stent placment- however patient refused at this time * Advance diet to clears. Monitor * No leukocytosis, afebrile * Lipase NEGATIVE * UDS- Positive for opiates; however patient has been receiving opiate pain medication in the hospital. * Abd/Pelvis CT w/o contrast 07/10/17- Left ureteral stent noted. Questionable imaging findings with regards to testicle. Refer to complete imaging report. * Dilaudid 1mg IVP Q4H PRN for severe pain switched to Morphine 6 mg Q4 PRN for pain control since dilaudid is not in stock at the hospital * Flomax 0.4mg PO daily * Temazepam 30mg PO HS PRN for insomnia * Zofran 4mg IVP Q6H PRN for nausea and vomiting Status: Acute Priority: High (2) Complicated UTI (urinary tract infection) Assessment and Plan: * Noted recent stent instrumentation which puts patient at increased risk for UTI. * Was recently on Bactrim antibiotic therapy previously to this admission. * UA: 2+ Protein, 3+ blood, 2+ leukocyte esterase, 71 WBC, 1922 RBC, calcium oxalate, urine yeast; F/U Urine Culture * Ceftriaxone 1g IVPB discontinued. Will switch to Maxipime 1 g Q12 at this time (Started 07/11/17). Vanco 1g IV Q12 for MRSA coverage (Started 07/11) . On Florastor 250mg PO BID (Started 07/11) * Monitor LFTs * NS @ 125cc/hr Status: Acute Priority: High (3) HTN (hypertension) Assessment and Plan: * Cont home med lisinopril 5mg PO daily * Normotensive Status: Acute (4) HLD (hyperlipidemia) Assessment and Plan: * Cont home med atorvastatin 40mg daily (substitute in house med crestor 10mg PO daily) Status: Acute (5) Prophylactic measure Assessment and Plan: * SCDs * Anticoagulation contraindicated secondary to hematuria * No NSAIDS no Aspirin given allergy: hives * Patient had refused EKG, chest xray, flat abdominal xray, lisinopril, florastor, fluids, and flomax. Status: Acute Priority: Low <Gareth Sierra - Last Filed: 07/12/17 18:54> Objective - Vital Signs/Intake and Output Vital Signs (last 24 hours): Temp Pulse Resp BP Pulse Ox 98.1 F 58 L 20 107/73 97 07/12/17 16:00 07/12/17 16:00 07/12/17 16:00 07/12/17 16:00 07/12/17 16:00 Intake and Output: 07/12/17 07/12/17 06:59 18:59 Intake Total 2450 1500 Balance 2450 1500 - Labs Labs: 07/11/17 10:40 07/11/17 10:40 PT 12.9 SECONDS (9.7-12.2) H 07/11/17 10:40 INR 1.1 07/11/17 10:40 APTT 31 SECONDS (21-34) 07/11/17 10:40 Attending/Attestation - Attestation I have personally seen and examined this patient.: Yes I have fully participated in the care of the patient.: Yes I have reviewed all pertinent clinical information, including history, physical exam and plan: Yes Notes (Text): 07/12/17 18:52 Patient was seen and examined with the resident. Exam, assessment and plan, and discharge plan were gone over with the resident. Urine Culture showed mixed species Explained to patient that he will need to have repeat Urine performed through his PMD once he has completed treatment with Bactrim. Please see discharge summary for further details. Gareth Sierra D.O.
--- NOTE | 2017-07-12 14:15 | CP.PCM.DIS ---
<GentryBenigno R - Last Filed: 07/12/17 14:11> Provider - Provider Date of Admission: 07/10/17 22:27 Attending physician: Shaheen Hinton MD Primary care physician: PMD: Dr Zacarias Consults: Urology: Dr Luna Time Spent in preparation of Discharge (in minutes): 34 Diagnosis - Discharge Diagnosis (1) Renal colic Status: Resolved Priority: High (2) UTI (urinary tract infection) Status: Acute Priority: High (3) HTN (hypertension) Status: Chronic Priority: Medium (4) HLD (hyperlipidemia) Status: Chronic Priority: Medium (5) Prophylactic measure Status: Acute Priority: Low Hospital Course - Lab Results Lab Results: Micro Results 07/10/17 20:38 Urine Urine Culture - Final 50-100,000 CFU/ML. MULTIPLE SPECIES. SUGGEST REPEAT SPECIMEN. Most Recent Lab Values WBC 3.4 K/uL (4.8-10.8) L 07/11/17 10:40 RBC 4.59 Mil/uL (4.40-5.90) 07/11/17 10:40 Hgb 13.3 g/dL (12.0-18.0) 07/11/17 10:40 Hct 39.4 % (35.0-51.0) 07/11/17 10:40 MCV 85.9 fL (80.0-94.0) 07/11/17 10:40 MCH 29.0 pg (27.0-31.0) 07/11/17 10:40 MCHC 33.8 g/dL (33.0-37.0) 07/11/17 10:40 RDW 16.8 % (11.5-14.5) H 07/11/17 10:40 Plt Count 230 K/uL (130-400) 07/11/17 10:40 MPV 7.8 fL (7.2-11.7) 07/11/17 10:40 Neut % (Auto) 51.6 % (50.0-75.0) 07/11/17 10:40 Lymph % (Auto) 24.4 % (20.0-40.0) 07/11/17 10:40 [place] % (Auto) 18.0 % (0.0-10.0) H 07/11/17 10:40 Eos % (Auto) 4.6 % (0.0-4.0) H 07/11/17 10:40 Baso % (Auto) 1.4 % (0.0-2.0) 07/11/17 10:40 Neut # (Auto) 1.7 K/uL (1.8-7.0) L 07/11/17 10:40 Lymph # (Auto) 0.8 K/uL (1.0-4.3) L 07/11/17 10:40 [place] # (Auto) 0.6 K/uL (0.0-0.8) 07/11/17 10:40 Eos # (Auto) 0.2 K/uL (0.0-0.7) 07/11/17 10:40 Baso # (Auto) 0.0 K/uL (0.0-0.2) 07/11/17 10:40 PT 12.9 SECONDS (9.7-12.2) H 07/11/17 10:40 INR 1.1 07/11/17 10:40 APTT 31 SECONDS (21-34) 07/11/17 10:40 Sodium 140 mmol/L (132-148) 07/11/17 10:40 Potassium 4.1 mmol/L (3.6-5.2) 07/11/17 10:40 Chloride 102 mmol/L (98-107) 07/11/17 10:40 Carbon Dioxide 26 mmol/L (22-30) 07/11/17 10:40 Anion Gap 16 (10-20) 07/11/17 10:40 BUN 9 mg/dL (9-20) 07/11/17 10:40 Creatinine 0.8 mg/dL (0.8-1.5) 07/11/17 10:40 Est GFR ( Amer) > 60 07/11/17 10:40 Est GFR (Non-Af Amer) > 60 07/11/17 10:40 Random Glucose 90 mg/dL (75-110) 07/11/17 10:40 Calcium 8.6 mg/dl (8.6-10.4) 07/11/17 10:40 Total Bilirubin 1.0 mg/dL (0.2-1.3) 07/11/17 10:40 AST 41 U/L (17-59) 07/11/17 10:40 ALT 24 U/L (21-72) 07/11/17 10:40 Alkaline Phosphatase 64 U/L (38-126) 07/11/17 10:40 Total Protein 7.4 g/dL (6.3-8.3) 07/11/17 10:40 Albumin 3.9 g/dL (3.5-5.0) 07/11/17 10:40 Globulin 3.5 gm/dL (2.2-3.9) 07/11/17 10:40 Albumin/Globulin Ratio 1.1 (1.0-2.1) 07/11/17 10:40 Lipase 59 U/L (23-300) 07/10/17 20:53 Urine Color Red (YELLOW) 07/10/17 20:53 Urine Clarity Turbid (Clear) 07/10/17 20:53 Urine pH 6.0 (5.0-8.0) 07/10/17 20:53 Ur Specific Hansen 1.019 (1.003-1.030) 07/10/17 20:53 Urine Protein 2+ mg/dL (NEGATIVE) H 07/10/17 20:53 Urine Glucose (UA) Normal mg/dL (Normal) 07/10/17 20:53 Urine Ketones Negative mg/dL (NEGATIVE) 07/10/17 20:53 Urine Blood 3+ (NEGATIVE) H 07/10/17 20:53 Urine Nitrate Negative (NEGATIVE) 07/10/17 20:53 Urine Bilirubin Negative (NEGATIVE) 07/10/17 20:53 Urine Urobilinogen Normal mg/dL (0.2-1.0) 07/10/17 20:53 Ur Leukocyte Esterase 2+ Kari/uL (Negative) H 07/10/17 20:53 Urine WBC (Auto) 71 /hpf (0-5) H 07/10/17 20:53 Urine RBC (Auto) 1922 /hpf (0-3) H 07/10/17 20:53 Ur Squamous Epith Cells 2 /hpf (0-5) 07/10/17 20:53 Calcium Oxalate Crystal Occ /hpf (<OCC) H 07/10/17 20:53 Urine Yeast (Budding) Occ /hpf (NEGATIVE) H 07/10/17 20:53 Urine Opiates Screen Positive (NEGATIVE) H 07/10/17 23:59 Urine Methadone Screen Negative (NEGATIVE) 07/10/17 23:59 Ur Barbiturates Screen Negative (NEGATIVE) 07/10/17 23:59 Ur Phencyclidine Scrn Negative (NEGATIVE) 07/10/17 23:59 Ur Amphetamines Screen Negative (NEGATIVE) 07/10/17 23:59 U Benzodiazepines Scrn Negative (NEGATIVE) 07/10/17 23:59 U Oth Cocaine Metabols Negative (NEGATIVE) 07/10/17 23:59 U Cannabinoids Screen Negative (NEGATIVE) 07/10/17 23:59 - Hospital Course Hospital Course: CC: "I had a kidney stone" HPI: Mr Stanford is a 36 year old male with a past medical history of kidney stones (uric acid stones), HTN, HLD who presents to [facility] ER complaining of left sided inguinal pain. He states that he was on vacation in [place] when this past , 2 days ago, he developed sudden left inguinal pain. He went to the ER and had a lithotripsy of a 10mm stone and J stent placement in the left ureter. He was discharged with Bactrim and percocet. He came back to [place] 1 day ago without issues. Today afternoon he developed sudden 10/10 left inguinal pain, he took percocet and tylenol without relief and thus decided to come to [facility] ER. Associated symptoms include nausea, vomiting, dysuria and hematuria. He denies chest pain, fever, chills, diarrhea, shortness of breath. When I evaluated him in the ER he was in 10/10 pain even though he had received 8mg Morphine IV. 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 Patient had lithotripsy and J stent placed in [place] [address] of abdomen and pelvis showed "in situ left ureteral stent and questionable small amount of fluid or left-sided testicle within inferior margin of left inguinal canal- undescended left-sided testis." Dr. Luna from from urology was consulted. Patient was treated with cefepime 1 gm IV Q12hr, vancomycin 1gm IV Q12hr, Flomax .4mg PO daily, Zofran 4mg IV Q6 PRN, morphine 6mg IVP Q4 PRN, as well as lisinopril 5mg PO daily, Crestor 10mg PO HS for chronic conditions. Upon discharge after a three day admission, patient's urine cultures had grown multiple species suggesting repeat specimen after finishing course of outpatient antibiotics. Patient's pain had improved immensely. Patient was discharged with bactrim 160/ 800mg double strength BID for 7 days, Flomax .4mg with breakfast, Florastor 250 mg PO BID for 37 days, Percocet 5/325 Q8hrs PRN for intractable pain for 5 days , Zofran 4 mg Q8hrs PRN, as well as Atrovastatin 40 mg, once daily, lisinopril 5mg once day. Patient was advised to hydrate aggressively with at least 3 liters of water daily and advance diet as tolerated. Patient was advised to follow up with Dr. Luna tomorrow for management of Left ureter stent. Patient was advised to follow up with PMD Dr. Zacarias upon completion of antibiotic course in 1 week for repeat urine culture. 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 * Recommendations for outpatient follow up within the week, to remove stent, and followup for 24 hour stone collection given his history of recurrent stones , discharge with flomax 0.4mg daily until stent is removed. Abdominal XRAY to check stent placment- however patient refused at this time * Advance diet to clears. Monitor * No leukocytosis, afebrile * Lipase NEGATIVE * UDS- Positive for opiates; however patient has been receiving opiate pain medication in the hospital. * Abd/Pelvis CT w/o contrast 07/10/17- Left ureteral stent noted. Questionable imaging findings with regards to testicle. Refer to complete imaging report. * Dilaudid 1mg IVP Q4H PRN for severe pain switched to Morphine 6 mg Q4 PRN for pain control since dilaudid is not in stock at the hospital * Flomax 0.4mg PO daily * Temazepam 30mg PO HS PRN for insomnia * Zofran 4mg IVP Q6H PRN for nausea and vomiting Status: Acute Priority: High (2) Complicated UTI (urinary tract infection) Assessment and Plan: * Noted recent stent instrumentation which puts patient at increased risk for UTI. * Was recently on Bactrim antibiotic therapy previously to this admission. * UA: 2+ Protein, 3+ blood, 2+ leukocyte esterase, 71 WBC, 1922 RBC, calcium oxalate, urine yeast; F/U Urine Culture * Ceftriaxone 1g IVPB discontinued. Will switch to Maxipime 1 g Q12 at this time (Started 07/11/17). Vanco 1g IV Q12 for MRSA coverage (Started 07/11) . On Florastor 250mg PO BID (Started 07/11) * Monitor LFTs * NS @ 125cc/hr Status: Acute Priority: High (3) HTN (hypertension) Assessment and Plan: * Cont home med lisinopril 5mg PO daily * Normotensive Status: Acute (4) HLD (hyperlipidemia) Assessment and Plan: * Cont home med atorvastatin 40mg daily (substitute in house med crestor 10mg PO daily) Status: Acute (5) Prophylactic measure Assessment and Plan: * SCDs * Anticoagulation contraindicated secondary to hematuria * No NSAIDS no Aspirin given allergy: hives * Patient had refused EKG, chest xray, flat abdominal xray, lisinopril, florastor, fluids, and flomax. Status: Acute Priority: Low Discharge Exam - Head Exam Head Exam: ATRAUMATIC, NORMAL INSPECTION - Additional Findings Additional findings: - Constitutional Appears: Non-toxic, No Acute Distress - Head Exam Head Exam: ATRAUMATIC, NORMAL INSPECTION - Eye Exam Eye Exam: EOMI, Normal appearance, PERRL Pupil Exam: NORMAL ACCOMODATION, PERRL - ENT Exam ENT Exam: Mucous Membranes Moist - Neck Exam Neck Exam: Full ROM - Respiratory Exam Respiratory Exam: NORMAL BREATHING PATTERN. absent: Wheezes - Cardiovascular Exam Cardiovascular Exam: +S1, +S2 - GI/Abdominal Exam GI & Abdominal Exam: Soft, Normal Bowel Sounds. absent: Guarding - Extremities Exam Extremities Exam: Full ROM - Back Exam Back Exam: CVA tenderness (L). absent: CVA tenderness (R) - Neurological Exam Neurological Exam: Awake, Normal Gait, Oriented x3 - Psychiatric Exam Psychiatric exam: Normal Affect, Normal Mood - Skin Skin Exam: Dry, Normal Color, Warm Discharge Plan - Discharge Medications Prescriptions: Atorvastatin [Lipitor] 40 mg PO HS 30 Days #30 tab Lisinopril [Zestril] 5 mg PO DAILY #30 tab Ondansetron ODT [Zofran ODT] 4 mg PO Q8H PRN #30 odt PRN Reason: Nausea/Vomiting oxyCODONE/Acetaminophen [Percocet 5/325 mg Tab] 1 tab PO Q8H PRN #15 tab PRN Reason: Pain, Severe (8-10) Saccharomyces Boulardi [Florastor] 250 mg PO BID 30 Days #60 cap Sulfamethoxazole/Trimethoprim [Bactrim DS 800 mg-160 mg] 1 tab PO Q12H 7 Days # 14 tab Tamsulosin [Flomax] 0.4 mg PO DAILY 30 Days #30 cap - Follow Up Plan Condition: FAIR Disposition: HOME/ ROUTINE Instructions: Saccharomyces boulardii, High Blood Pressure (DC), Urinary Tract Infection, Adult (DC), Renal Colic (DC), Full Liquid Diet, High Cholesterol (DC) , Atorvastatin, Sulfamethoxazole and Trimethoprim, Lisinopril, Ondansetron, Oxycodone and Acetaminophen, Tamsulosin Additional Instructions: Patient is medically stable for discharge. Patient will need to follow-up with Urologist Dr Luna regarding the stent in the left ureter. Dr Luna instructions are to follow-up with him in 1 week (patient already has Dr Luna business card), to take the oral antibiotics and to continue the Flomax. When Dr Luna see's the patient in his office, he will then schedule a cystoscopy with removal of the left ureteral stent. Patient was electronically prescribed the following medications which he should take as instructed. These were [facility] sent over to [facility] 1. Zofran 4mg 1 tablet only as needed for nausea every 8 hours 2. Florastor 250mg 1 tablet 2 hours prior to taking the antibiotic - continue for 1 month (this will prevent diarrhea associated with antiobiotics) 3. Bactrim DS 800-160mg 1 tablet every 12 hours for 7 days 4. Flomax 0.4mg 1 tablet in the morning The following script was given to the patient (as it could not be electronically sent over) 1. Percocet 5/325mg 1 tab as needed for pain every 8 hours The following home medications were also electronically prescribed 1. Lipitor 40mg once at night 2. Lisinopril 5mg once at night Patient should follow-up with his PMD, Dr Mathews in 1 week so he may be aware of this admission and to monitor the patient's other conditions which include hypertension and hyperlipidemia. In addition, Dr Mathews should do a repeat urine culture to ensure the infection has resolved. Lastly, advance your diet to solid foods as tolerated. And be sure to drink plenty of fluids - at least 3 liters of water a day. If symptoms return promptly go to your nearest emergency department. Referrals: Elmer Luna MD [Staff Provider] - Felton Sanders Jr., MD [Medical Doctor] - <Gareth Sierra - Last Filed: 07/12/17 18:55> Provider - Provider Date of Admission: 07/10/17 22:27 Attending physician: Shaheen Hinton MD Time Spent in preparation of Discharge (in minutes): 40 Hospital Course - Lab Results Lab Results: Micro Results 07/10/17 20:38 Urine Urine Culture - Final 50-100,000 CFU/ML. MULTIPLE SPECIES. SUGGEST REPEAT SPECIMEN. Most Recent Lab Values WBC 3.4 K/uL (4.8-10.8) L 07/11/17 10:40 RBC 4.59 Mil/uL (4.40-5.90) 07/11/17 10:40 Hgb 13.3 g/dL (12.0-18.0) 07/11/17 10:40 Hct 39.4 % (35.0-51.0) 07/11/17 10:40 MCV 85.9 fL (80.0-94.0) 07/11/17 10:40 MCH 29.0 pg (27.0-31.0) 07/11/17 10:40 MCHC 33.8 g/dL (33.0-37.0) 07/11/17 10:40 RDW 16.8 % (11.5-14.5) H 07/11/17 10:40 Plt Count 230 K/uL (130-400) 07/11/17 10:40 MPV 7.8 fL (7.2-11.7) 07/11/17 10:40 Neut % (Auto) 51.6 % (50.0-75.0) 07/11/17 10:40 Lymph % (Auto) 24.4 % (20.0-40.0) 07/11/17 10:40 [place] % (Auto) 18.0 % (0.0-10.0) H 07/11/17 10:40 Eos % (Auto) 4.6 % (0.0-4.0) H 07/11/17 10:40 Baso % (Auto) 1.4 % (0.0-2.0) 07/11/17 10:40 Neut # (Auto) 1.7 K/uL (1.8-7.0) L 07/11/17 10:40 Lymph # (Auto) 0.8 K/uL (1.0-4.3) L 07/11/17 10:40 [place] # (Auto) 0.6 K/uL (0.0-0.8) 07/11/17 10:40 Eos # (Auto) 0.2 K/uL (0.0-0.7) 07/11/17 10:40 Baso # (Auto) 0.0 K/uL (0.0-0.2) 07/11/17 10:40 PT 12.9 SECONDS (9.7-12.2) H 07/11/17 10:40 INR 1.1 07/11/17 10:40 APTT 31 SECONDS (21-34) 07/11/17 10:40 Sodium 140 mmol/L (132-148) 07/11/17 10:40 Potassium 4.1 mmol/L (3.6-5.2) 07/11/17 10:40 Chloride 102 mmol/L (98-107) 07/11/17 10:40 Carbon Dioxide 26 mmol/L (22-30) 07/11/17 10:40 Anion Gap 16 (10-20) 07/11/17 10:40 BUN 9 mg/dL (9-20) 07/11/17 10:40 Creatinine 0.8 mg/dL (0.8-1.5) 07/11/17 10:40 Est GFR ( Amer) > 60 07/11/17 10:40 Est GFR (Non-Af Amer) > 60 07/11/17 10:40 Random Glucose 90 mg/dL (75-110) 07/11/17 10:40 Calcium 8.6 mg/dl (8.6-10.4) 07/11/17 10:40 Total Bilirubin 1.0 mg/dL (0.2-1.3) 07/11/17 10:40 AST 41 U/L (17-59) 07/11/17 10:40 ALT 24 U/L (21-72) 07/11/17 10:40 Alkaline Phosphatase 64 U/L (38-126) 07/11/17 10:40 Total Protein 7.4 g/dL (6.3-8.3) 07/11/17 10:40 Albumin 3.9 g/dL (3.5-5.0) 07/11/17 10:40 Globulin 3.5 gm/dL (2.2-3.9) 07/11/17 10:40 Albumin/Globulin Ratio 1.1 (1.0-2.1) 07/11/17 10:40 Lipase 59 U/L (23-300) 07/10/17 20:53 Urine Color Red (YELLOW) 07/10/17 20:53 Urine Clarity Turbid (Clear) 07/10/17 20:53 Urine pH 6.0 (5.0-8.0) 07/10/17 20:53 Ur Specific Hansen 1.019 (1.003-1.030) 07/10/17 20:53 Urine Protein 2+ mg/dL (NEGATIVE) H 07/10/17 20:53 Urine Glucose (UA) Normal mg/dL (Normal) 07/10/17 20:53 Urine Ketones Negative mg/dL (NEGATIVE) 07/10/17 20:53 Urine Blood 3+ (NEGATIVE) H 07/10/17 20:53 Urine Nitrate Negative (NEGATIVE) 07/10/17 20:53 Urine Bilirubin Negative (NEGATIVE) 07/10/17 20:53 Urine Urobilinogen Normal mg/dL (0.2-1.0) 07/10/17 20:53 Ur Leukocyte Esterase 2+ Kari/uL (Negative) H 07/10/17 20:53 Urine WBC (Auto) 71 /hpf (0-5) H 07/10/17 20:53 Urine RBC (Auto) 1922 /hpf (0-3) H 07/10/17 20:53 Ur Squamous Epith Cells 2 /hpf (0-5) 07/10/17 20:53 Calcium Oxalate Crystal Occ /hpf (<OCC) H 07/10/17 20:53 Urine Yeast (Budding) Occ /hpf (NEGATIVE) H 07/10/17 20:53 Urine Opiates Screen Positive (NEGATIVE) H 07/10/17 23:59 Urine Methadone Screen Negative (NEGATIVE) 07/10/17 23:59 Ur Barbiturates Screen Negative (NEGATIVE) 07/10/17 23:59 Ur Phencyclidine Scrn Negative (NEGATIVE) 07/10/17 23:59 Ur Amphetamines Screen Negative (NEGATIVE) 07/10/17 23:59 U Benzodiazepines Scrn Negative (NEGATIVE) 07/10/17 23:59 U Oth Cocaine Metabols Negative (NEGATIVE) 07/10/17 23:59 U Cannabinoids Screen Negative (NEGATIVE) 07/10/17 23:59 Attending/Attestation - Attestation I have personally seen and examined this patient.: Yes I have fully participated in the care of the patient.: Yes I have reviewed all pertinent clinical information, including history, physical exam and plan: Yes
[2017-07-12 17:39] VITALS: BP 107/73; PULSE 58; TEMP 98.1; O2SAT 97
== END 2017-07-12 18:35 | disposition home or self-care (01) ==
LOC: C.ER 20:23 → C.9E 22:27 → C.3T 23:19
PROVIDERS: ADMIT Family Medicine; ATTEND Family Medicine
DX: N39.0 Urinary tract infection, site not specified (principal); N13.2 Hydronephrosis with renal and ureteral calculous obstruction; I10 Essential (primary) hypertension; E78.5 Hyperlipidemia, unspecified; E78.00 Pure hypercholesterolemia, unspecified; F17.290 Nicotine dependence, other tobacco product, uncomplicated; Q53.10 Unspecified undescended testicle, unilateral; G47.00 Insomnia, unspecified; Z87.442 Personal history of urinary calculi; Z79.899 Other long term (current) drug therapy; Z82.49 Family history of ischemic heart disease and other diseases of the circulatory system
CPT/HCPCS: 36415; 74176; 80053; 81001; 83690; 85025; 85610; 85730; 87086; 96360; 96365; 96374; 99285; G0378; G0480; J0692; J0696; J1170; J2270; J2405; J3370; J7040

== ENCOUNTER 2017-07-13 18:13 | Emergency (ER) | payer SELFPAY ==
[2017-07-13] MEDS ORDERED: Sodium Chloride 0.9% 1,000 ML IV ONE (19:33)
--- NOTE | 2017-07-13 19:33 | C.PDOC ---
History Of Present Illness The patient presents to the ED for evaluation of left flank pain. Patient reports a history of stent placement in left kidney for kidney stone. Patient also states that he took some extra Tylenol, unaware that Percocet already has Tylenol in it. Patient reports some nausea. He denies vomiting and suicidal/ homicidal ideation. Time Seen by Provider: 07/13/17 19:33 Chief Complaint (Nursing): Male Genitourinary History Per: Patient History/Exam Limitations: no limitations Onset/Duration Of Symptoms: Hrs Current Symptoms Are (Timing): Still Present Severity: Mild Pain Scale Rating Of: 2 Quality Of Discomfort: "Pain" Associated Symptoms: Nausea. denies: Vomiting Alleviating Factors: None Recent travel outside of the [place]: No Additional History Per: Patient Past Medical History Reviewed: Historical Data, Nursing Documentation, Vital Signs Vital Signs: Last Vital Signs Temp 97.8 F 07/13/17 22:45 Pulse 68 07/13/17 22:45 Resp 20 07/13/17 22:45 BP 127/79 07/13/17 22:45 Pulse Ox 96 07/13/17 23:24 - Medical History PMH: HTN, Hypercholesterolemia, Kidney Stones Surgical History: No Surg Hx Family History: States: Unknown Family Hx - Social History Hx Tobacco Use: Yes (light smoker) Hx Alcohol Use: Yes Hx Substance Use: No - Immunization History Hx Tetanus Toxoid Vaccination: Yes Hx Influenza Vaccination: Yes Hx Pneumococcal Vaccination: No Review Of Systems Constitutional: Negative for: Fever, Chills Cardiovascular: Negative for: Chest Pain, Palpitations Respiratory: Negative for: Cough, Shortness of Breath Gastrointestinal: Positive for: Nausea. Negative for: Vomiting, Abdominal Pain , Diarrhea Musculoskeletal: Positive for: Other (left flank pain ) Skin: Negative for: Rash, Lesions, Jaundice, Bruising Neurological: Negative for: Weakness, Numbness Psych: Negative for: Suicidal ideation Physical Exam - Physical Exam Appears: Non-toxic, No Acute Distress Skin: Warm, Dry Head: Normacephalic Eye(s): bilateral: Normal Inspection Oral Mucosa: Moist Neck: Supple Chest: Symmetrical, No Deformity, No Tenderness Cardiovascular: Rhythm Regular, No Murmur Respiratory: No Rales, No Rhonchi, No Wheezing Gastrointestinal/Abdominal: Soft, No Tenderness, No Guarding, No Rebound Back: Other (left flank tenderness ) Extremity: Normal ROM, Capillary Refill (less than 2 seconds ) Neurological/Psych: Oriented x3 ED Course And Treatment - Laboratory Results Result Diagrams: 07/13/17 19:55 07/13/17 19:55 O2 Sat by Pulse Oximetry: 96 (on RA) Pulse Ox Interpretation: Normal Progress Note: Bloodwork, UA, CXR, EKG ordered and reviewed. Patient given Morphine IVP, Zosyn IVP, and IV Fluids. On [place] no prescriptions found for any narcotics. 10:[address] luna. Will see the pt in his office on to schedule for stent removal. will not remove the stent now. Would also like to have the pt dc'd with. pt still states that he has pain. another dose of morphine given Reevaluation Time: 23:23 Reassessment Condition: Improved Disposition Counseled Patient/Family Regarding: Studies Performed, Diagnosis, Need For Followup - Disposition Referrals: Elmer Lnua MD [Staff Provider] - Disposition: HOME/ ROUTINE Disposition Time: 19:33 Condition: FAIR Additional Instructions: Stop the bactrim. Continue all other medication Prescriptions: Levofloxacin [Levaquin] 500 mg PO DAILY #7 tablet traMADol [Ultram] 50 mg PO QID PRN #20 tab PRN Reason: Pain, Severe (8-10) Instructions: Renal Colic (DC), Ureteral Stent (DC) Forms: [facility] (Spanish) - Clinical Impression Clinical Impression: UTI (urinary tract infection), Renal colic on left side, Pain due to ureteral stent - Scribe Statement The provider has reviewed the documentation as recorded by the Scribe (Shelby Sierra) Provider Attestation: All medical record entries made by the Scribe were at my direction and personally dictated by me. I have reviewed the chart and agree that the record accurately reflects my personal performance of the history, physical exam, medical decision making, and the department course for this patient. I have also personally directed, reviewed, and agree with the discharge instructions and disposition.
[2017-07-13 19:58] LABS: BASO # 0.1 K/uL (0.0-0.2); BASO % 1.8 % (0.0-2.0); EOS # 0.2 K/uL (0.0-0.7); HEMOGLOBIN 13.7 g/dL (12.0-18.0); LYMPH # 1.1 K/uL (1.0-4.3); LYMPH % 30.4 % (20.0-40.0); MEAN CELL VOLUME 85.6 fL (80.0-94.0); MEAN CORPUSCULAR HEMOGLOBIN 29.4 pg (27.0-31.0); MEAN CORPUSCULAR HGB CONC 34.3 g/dL (33.0-37.0); MEAN PLATELET VOLUME 7.5 fL (7.2-11.7); MONO # 0.5 K/uL (0.0-0.8); MONO % 12.6 % (0.0-10.0); NEUT # 1.9 K/uL (1.8-7.0); NEUT % 50.2 % (50.0-75.0); NRBC % 0.1 % (0.0-2.0); RBC 4.65 Mil/uL (4.40-5.90); RED CELL DISTRIBUTION WIDTH 16.2 % (11.5-14.5); WHITE BLOOD COUNT 3.8 K/uL (4.8-10.8)
[2017-07-13] MEDS ORDERED: Morphine 4 MG/ML VIAL ONE ×2 (20:05→22:47)
[2017-07-13 20:10] LABS: SQUAMOUS EPITHIAL 15 /hpf (0-5); URINE BACTERIA FEW (<OCC); URINE BILIRUBIN NEGATIVE (NEGATIVE); URINE BLOOD 3+ (NEGATIVE); URINE CLARITY Hazy (Clear); URINE GLUCOSE (UA) NORMAL (Normal); URINE LEUKOCYTE ESTERASE 3+ Leu/uL (Negative); URINE PROTEIN 2+ mg/dL (NEGATIVE)
[2017-07-13 20:13] LABS: ACETAMINOPHEN < 10.0 ug/mL (10.0-30.0); SALICYLATE < 1.0 mg/dL 1
[2017-07-13] MEDS ORDERED: Piperacillin/Tazobact 3.375 GM in Sodium Chloride 100 ML IVPB STA (20:13)
[2017-07-13 20:14] LABS: ALB/GLOB RATIO 1.1 (1.0-2.1); ALBUMIN 4.6 g/dL (3.5-5.0); ALT/SGPT 19 U/L (21-72); AST/SGOT 44 U/L (17-59); BLOOD UREA NITROGEN 10 mg/dL (9-20); CALCIUM 9.1 mg/dl (8.6-10.4); GFR AFRICAN-AMERICAN > 60; GFR NON-AFRICAN AMERICAN > 60
[2017-07-13 20:19] LABS: BARBITURATES, UR NEGATIVE (NEGATIVE); PHENCYCLIDINE, UR NEGATIVE (NEGATIVE)
[2017-07-13 20:23] LABS: URINE COLOR YELLOW (YELLOW)
[2017-07-13] MEDS ORDERED: Piperacillin/Tazobact 3.375 gm 100 ML IVPB ONE (20:28)
[2017-07-13 20:31] LABS: BENZODIAZEPINES, UR NEGATIVE (NEGATIVE)
[2017-07-13 20:32] LABS: OPIATES, UR POSITIVE (NEGATIVE)
[2017-07-13] MEDS ORDERED: Lidocaine 200 MG in Sodium Chloride 0.9% 100 ML IV ONE ×2 (20:39→21:00)
[2017-07-13] MEDS ORDERED: Piperacill/Tazo 3.375gm in Dex 3.375 GM/50 ML BAG IVPB STA (20:48)
[2017-07-13 23:04] VITALS: BP 127/79; PULSE 68; RESP 20
[2017-07-13 23:14] VITALS: O2SAT 96
[2017-07-13 23:20] VITALS: TEMP 97.8
== END 2017-07-13 23:22 | disposition home or self-care (01) ==
LOC: C.ER 18:13
DX: N39.0 Urinary tract infection, site not specified (principal); N23 Unspecified renal colic; T83.84XA Pain due to genitourinary prosthetic devices, implants and grafts, initial encounter; Y84.9 Medical procedure, unspecified as the cause of abnormal reaction of the patient, or of later complication, without mention of misadventure at the time of the procedure
CPT/HCPCS: 80053; 81001; 85025; 96365; 96375; 96376; 99285; G0480; J2001; J2270; J2405; J2543; J7040; J7050

== ENCOUNTER 2017-09-01 17:00 | Emergency (ER) | payer SELFPAY ==
[2017-09-01 17:05] VITALS: PULSE 87; RESP 20; TEMP 98.1; O2SAT 98
--- NOTE | 2017-09-01 17:42 | C.PDOC ---
History Of Present Illness 36 year old male presents to the ED for evaluation of recurrent left flank pain and gross hematuria. Patient was diagnosed with a 10mm kidney stone in June 2017 while he on vacation in [place]. During his trip, patient was seen in the ED and underwent lithotripsy and stent placement. Since returning to [place], patient has had two similar ED visits for the same issues. Patient was seen in this ED on 07/10 for complaints of left flank pain and was diagnosed with stent colic. Patient was evaluated in this ED for similar complaints on and was advised to follow up with Dr. Luna. Patient states he is scheduled for an appointment during the first week of September. Patient returns to the ED for recurrent symptoms. He states he has been taking Flomax and Percocet , with minimal relief. Patient also reports having nausea and episodes of vomiting today because of the pain. He denies fever, chills. Time Seen by Provider: 09/01/17 17:21 Chief Complaint (Nursing): Male Genitourinary History Per: Patient History/Exam Limitations: no limitations Onset/Duration Of Symptoms: Days Current Symptoms Are (Timing): Still Present Quality Of Discomfort: "Pain" Associated Symptoms: Nausea, Vomiting, Urinary Symptoms (gross hematuria ). denies: Fever, Chills Additional History Per: Patient Past Medical History Reviewed: Historical Data, Nursing Documentation, Vital Signs Vital Signs: Last Vital Signs Temp 98.1 F 09/01/17 17:04 Pulse 87 09/01/17 17:04 Resp 20 09/01/17 17:04 BP 106/68 09/01/17 18:21 Pulse Ox 98 09/01/17 22:58 - Medical History PMH: HTN, Hypercholesterolemia, Kidney Stones Surgical History: No Surg Hx Family History: States: Unknown Family Hx - Social History Hx Tobacco Use: Yes (light smoker) Hx Alcohol Use: Yes Hx Substance Use: No - Immunization History Hx Tetanus Toxoid Vaccination: Yes Hx Influenza Vaccination: Yes Hx Pneumococcal Vaccination: No Review Of Systems Constitutional: Negative for: Fever, Chills Genitourinary: Positive for: Hematuria Musculoskeletal: Positive for: Other (left flank pain ) Physical Exam - Physical Exam Appears: Non-toxic, No Acute Distress Skin: Normal Color, Warm, Dry Head: Atraumatic, Normacephalic Eye(s): bilateral: Normal Inspection Oral Mucosa: Moist Neck: Supple Chest: Symmetrical, No Deformity, No Tenderness Cardiovascular: Rhythm Regular, No Murmur Respiratory: Normal Breath Sounds, No Rales, No Rhonchi, No Wheezing Gastrointestinal/Abdominal: Soft, No Tenderness, No Guarding, No Rebound Back: CVA Tenderness (left-sided ) Extremity: Normal ROM, Capillary Refill (less than 2 seconds ) Neurological/Psych: Oriented x3, Normal Speech, Normal Cognition ED Course And Treatment - Laboratory Results Result Diagrams: 09/01/17 17:47 09/01/17 17:47 Lab Interpretation: No Acute Changes O2 Sat by Pulse Oximetry: 98 Pulse Ox Interpretation: Normal Progress Note: Bloodwork and urinalysis ordered and reviewed. 18:[address] Luna, who states patient was offered an office appointment 1 week following his most recent ED visit. Patient failed to follow up in office. States he received a call from a [place] physician about this patient several weeks ago and is concerned that the patient is drug seeking. He is no longer willing to care for the patient. Reevaluation Time: 19:00 Reassessment Condition: Unchanged (Patient refused LIdocaine IV stating that it did not work the last time. He is refusing xray and states that he wants more Morphine. "They gave it to me the last time I was here". Advised that we have a pain protocol and provided patient with documentation. He became angry and verbally abusive, called me a "cunt" and threatened to sarah me. Patient did not appear to be in any acute distress. Offered to call the current urologist medical reception but he continued to be threatening and left the ED.) Disposition Counseled Patient/Family Regarding: Studies Performed, Diagnosis - Disposition Disposition: ELOPEMENT - ER ONLY Disposition Time: 19:10 Condition: STABLE Forms: [facility] (Chilean) - Clinical Impression Clinical Impression: Pain due to ureteral stent, Drug-seeking behavior - Scribe Statement The provider has reviewed the documentation as recorded by the Scribe (Shelby Sierra) Provider Attestation: All medical record entries made by the Scribe were at my direction and personally dictated by me. I have reviewed the chart and agree that the record accurately reflects my personal performance of the history, physical exam, medical decision making, and the department course for this patient. I have also personally directed, reviewed, and agree with the discharge instructions and disposition.
[2017-09-01] MEDS ORDERED: Morphine 4 MG/ML VIAL ONE (17:45)
[2017-09-01 17:51] LABS: BASO # 0.1 K/uL (0.0-0.2); BASO % 1.2 % (0.0-2.0); EOS # 0.4 K/uL (0.0-0.7); EOS % 6.1 % (0.0-4.0); HEMOGLOBIN 11.6 g/dL (12.0-18.0); LYMPH # 0.8 K/uL (1.0-4.3); LYMPH % 14.3 % (20.0-40.0); MEAN CELL VOLUME 86.8 fL (80.0-94.0); MEAN CORPUSCULAR HEMOGLOBIN 30.2 pg (27.0-31.0); MEAN CORPUSCULAR HGB CONC 34.8 g/dL (33.0-37.0); MEAN PLATELET VOLUME 7.3 fL (7.2-11.7); MONO # 0.8 K/uL (0.0-0.8); MONO % 13.7 % (0.0-10.0); NEUT # 3.8 K/uL (1.8-7.0); NEUT % 64.7 % (50.0-75.0); NRBC % 0.1 % (0.0-2.0); RBC 3.82 Mil/uL (4.40-5.90); RED CELL DISTRIBUTION WIDTH 15.3 % (11.5-14.5); WHITE BLOOD COUNT 5.8 K/uL (4.8-10.8)
[2017-09-01 18:09] LABS: ALB/GLOB RATIO 1.4 (1.0-2.1); ALBUMIN 4.8 g/dL (3.5-5.0); ALT/SGPT 138 U/L (21-72); AST/SGOT 123 U/L (17-59); BLOOD UREA NITROGEN 17 mg/dL (9-20); CALCIUM 9.1 mg/dl (8.6-10.4); GFR AFRICAN-AMERICAN > 60; GFR NON-AFRICAN AMERICAN > 60
[2017-09-01] MEDS ORDERED: Lidocaine 200 MG in Sodium Chloride 0.9% 100 ML IV STA (18:20)
[2017-09-01 18:22] VITALS: BP 106/68
== END 2017-09-01 19:07 | disposition left against medical advice (07) ==
LOC: C.ER 17:00
DX: Z76.5 Malingerer [conscious simulation] (principal); T83.84XA Pain due to genitourinary prosthetic devices, implants and grafts, initial encounter; E78.00 Pure hypercholesterolemia, unspecified; I10 Essential (primary) hypertension; F17.200 Nicotine dependence, unspecified, uncomplicated
CPT/HCPCS: 80053; 85025; 96374; 99284; J2270